=== PATIENT | female | born 1995 | race Caucasian/White ===

== ENCOUNTER 2020-01-22 11:31 | Outpatient (CLI) | payer BC ==
[2020-01-22 12:44] VITALS: BP 106/67; PULSE 86; RESP 18; TEMP 99
--- NOTE | 2020-01-22 18:48 | P.MSEPDOC ---
Presenting Problems - Arrival Data Date of Arrival on Unit: 01/22/20 Time of Arrival on Unit: 11:35 Mode of Transport: Ambulatory - Complaint OB-Reason for Admission/Chief Complaint: Other Comment: ruq pain. onset 3 days ago as pressure then stopped and then started yesterday again. without pain with palpation or percussion at this time. pain score of 0. Medical History - Information : 4 Para: 0 Term: 0 : 0 Abortions: Spontaneous or Elective: 3 Number of Living Children: 0 - Gestational Age Gestational Age by ZULEMA (wks/days): 25 Weeks and 3 Days - History Comment: partial previa per dr daniels. Review of Systems - Review of Systems Constitutional: No problems Breast: No problems ENT: No problems Cardiovascular: No problems Respiratory: No problems Gastrointestinal: No problems Genitourinary: No problems Musculoskeletal: No problems Neurological: No problems Skin: No problems Vital Signs - Temperature Temperature: 99.0 F Temperature Source: Oral - Pulse Right Brachial Pulse Rate: 86 Pulse Assessment Method: Automatic Cuff - Respirations Respiratory Rate: 18 Oxygen Delivery Method: Room Air O2 Sat by Pulse Oximetry: 100 - Blood Pressure Right Arm Blood Pressure: 106/67 Blood Pressure Mean: 80 Blood Pressure Source: Automatic Cuff Medical Screen Scoring (Pre) - Cervical Exam Dilation: Exam Deferred - Uterine Contractions Frequency: N/A Duration: N/A Intensity: N/A - Maternal Vital Signs Maternal Temperature: N/A Maternal Blood Pressure: N/A Signs of Preeclampsia: N/A Maternal Respirations: N/A - Maternal Trauma Maternal Trauma: N/A - Assessment - Baby A Baseline FHR: 135 Heart Rate - NICHD Category: Category I (Normal) = 0 NST: Reactive Position: N/A Station: N/A - Total Score - Baby A Total Score - Baby A: 0 - Total Score - Baby B Total Score - Baby B: 0 - Total Score - Baby C Total Score - Baby C: 0 - Level of Risk - Baby A Level of Risk - Baby A: Low (0-5) - Level of Risk - Baby B Level of Risk - Baby B: Low (0-5) - Level of Risk - Baby C Level of Risk - Baby C: Low (0-5) Physician Notification (Pre) - Physician Notified Physician Notified Date: 01/22/20 Physician Notified Time: 11:58 New Order Received: Yes - Notification Comment Comment: discharge home. to keep next sched appt with dr mclain and katrin chavezq pain with her. Disposition - Disposition OB Disposition: Discharge to home Discharge Date: 01/22/20 Discharge Time: 12:10 I agree with the RN Medical Screening Exam: Yes Risk & Benefit of care provided described in d/c instruction: Yes Diagnosis: PAIN, UNSPECIFIED
== END 2020-01-22 12:10 | disposition home or self-care (01) ==
LOC: FBPOP 11:31
PROVIDERS: ATTEND Obstetrics & Gynecology
DX: O99.891 Other specified diseases and conditions complicating pregnancy (principal); R52 Pain, unspecified; Z3A.25 25 weeks gestation of pregnancy
CPT/HCPCS: 99213

== ENCOUNTER 2020-03-09 14:23 | Outpatient (CLI) | payer BC ==
[2020-03-09 15:38] VITALS: BP 113/62; PULSE 90; RESP 18; TEMP 98.2
--- NOTE | 2020-03-09 16:23 | US ---
EXAMINATION TYPE: US OB BPP wo non-stress DATE OF EXAM: 03/09/2020 COMPARISON: NONE CLINICAL HISTORY: Bleeding. Known third trimester gestation. EXAM PERFORMED: Transabdominal (TA) BPP PARAMETERS: PRESENTATION: Vertex HEART RATE: 133 bpm RHYTHM: Normal SELMA: 11.8 DIAPHRAGM IMAGED: BPP SCORIN. Breathin (1 episode of breathing of 30 second duration in 30 minutes of scanning time) 2. Movement: 2 (at least 3 discrete body movements in 30 minutes) 3. Tone: 2 (1 episode of active flexion/extension of limb) 4. SELMA: 2 (SELMA index > 5cm) TOTAL SCORE: 8 / 8 Single live intrauterine gestation. Normal cephalad presentation. No placenta previa. Ultrasound biop hysical profile scored normal range during real-time scanning.
--- NOTE | 2020-03-09 16:25 | US ---
EXAMINATION TYPE: US OB limited DATE OF EXAM: 03/09/2020 COMPARISON: NONE CLINICAL HISTORY: BLEEDING. Known third trimester gestation. EXAM PERFORMED: GESTATIONAL AGE / DATING Physician Established: (32 weeks/1 days) EDC: 05/03/20 No growth performed on today?s study per ordering physician SURVEY PLACENTA: Posterior/fundal PREVIA: difficult to assess where cervix ends due to shadowing of bone Ultrasound evidence of abruption? No PRESENTATION: Vertex HEART RATE: 133 bpm RHYTHM: Arrhythmia Pictures on Biophysical profile. Single live intrauterine gestation. Normal cephalad presentation. No placenta previa. Calculated amni otic fluid index within normal limits. heart tones lower limits of normal. The technologist nasrin castillo arrhythmia during real-time scanning? IMPRESSION: As above.
--- NOTE | 2020-03-21 20:14 | P.MSEPDOC ---
Presenting Problems - Arrival Data Date of Arrival on Unit: 03/09/20 Time of Arrival on Unit: 14:23 Mode of Transport: Portable - Complaint OB-Reason for Admission/Chief Complaint: Vaginal Bleeding Medical History - Information : 4 Para: 0 Term: 0 : 0 Abortions: Spontaneous or Elective: 3 Number of Living Children: 0 - Gestational Age Gestational Age by ZULEMA (wks/days): 32 Weeks and 1 Days - History Complications: Placenta Previa Review of Systems - Review of Systems Constitutional: No problems Breast: No problems ENT: No problems Cardiovascular: No problems Respiratory: No problems Gastrointestinal: No problems Genitourinary: No problems Musculoskeletal: No problems Neurological: No problems Skin: No problems Vital Signs - Temperature Temperature: 98.2 F Temperature Source: Temporal Artery Scan - Pulse Right Pulse Rate: 90 Pulse Assessment Method: Automatic Cuff - Respirations Respiratory Rate: 18 Oxygen Delivery Method: Room Air O2 Sat by Pulse Oximetry: 98 - Blood Pressure Right Arm Blood Pressure: 113/62 Blood Pressure Mean: 79 Blood Pressure Source: Automatic Cuff Medical Screen Scoring (Pre) - Cervical Exam Dilation: Exam Deferred Effacement: Exam Deferred Membranes: Intact - Uterine Contractions Frequency: N/A Duration: N/A Intensity: N/A - Maternal Vital Signs Maternal Temperature: N/A Maternal Blood Pressure: N/A Signs of Preeclampsia: N/A Maternal Respirations: N/A - Maternal Trauma Maternal Trauma: N/A - Assessment - Baby A Baseline FHR: 125 Heart Rate - NICHD Category: Category I (Normal) = 0 NST: Reactive Position: N/A Station: N/A - Total Score - Baby A Total Score - Baby A: 0 - Total Score - Baby B Total Score - Baby B: 0 - Total Score - Baby C Total Score - Baby C: 0 - Level of Risk - Baby A Level of Risk - Baby A: Low (0-5) - Level of Risk - Baby B Level of Risk - Baby B: Low (0-5) - Level of Risk - Baby C Level of Risk - Baby C: Low (0-5) Physician Notification (Pre) - Physician Notified Physician Notified Date: 03/09/20 Physician Notified Time: 15:00 New Order Received: Yes - Notification Comment Comment: Order US for BPP and assessment of placenta for signs of hemorrhage. Medical Screen Scoring (Post) - Uterine Contractions Frequency: N/A Duration: N/A Intensity: N/A - Maternal Vital Signs Maternal Temperature: N/A Maternal Blood Pressure: N/A Signs of Preeclampsia: N/A Maternal Respirations: N/A - Maternal Trauma Maternal Trauma: N/A - Assessment - Baby A Heart Rate: 135 Heart Rate - NICHD Category: Category I (Normal) = 0 NST: Reactive Position: N/A Station: N/A - Total Score Total Score - Baby A: 0 Total Score - Baby B: 0 Total Score - Baby C: 0 - Post Treatment Level of Risk Post Treatment Level of Risk - Baby A: Low (0-5) Post Treatment Level of Risk - Baby B: Low (0-5) Post Treatment Level of Risk - Baby C: Low (0-5) Physician Notification (Post) - Physician Notified Physician Notified Date: 03/09/20 Physician Notified Time: 16:39 Physician/Practitioner Notified:: Maxwell Spoke With: Vidhi New Order Received: Yes - Notification Comment Comment: RN and Dr. Arreola reviewed US results with. pt. Per the US, the placenta has migrated to. posterior fundal, and no signs of hemorrhage noted. Pt may DC home and follow up with Dr. Arreola in 2. days at her scheduled apt. US to be repeated at that. time in the office to assess further. Disposition - Disposition OB Disposition: Discharge to home Discharge Date: 03/09/20 Discharge Time: 16:47 I agree with the RN Medical Screening Exam: Yes Physician's MSE Comment: I did see this patient in triage. She had some vaginal bleeding that seemed to stop in triage. US was normal and she has a repeat US in a few days. Precautions of when to return were reviewed. Case reviewed; plan agreed upon as documented in EMR&OBIX.: Yes Diagnosis: COMPLETE PLACENTA PREVIA WITH HEMORRHAGE, THIRD TRIMESTER
== END 2020-03-09 16:47 | disposition home or self-care (01) ==
LOC: FBPOP 14:23
PROVIDERS: ATTEND Obstetrics & Gynecology
DX: O44.13 Complete placenta previa with hemorrhage, third trimester (principal); Z3A.32 32 weeks gestation of pregnancy
CPT/HCPCS: 76815; 76819; 99213

== ENCOUNTER 2020-03-25 10:05 | Outpatient (CLI) | payer BC ==
[2020-03-25] MEDS ORDERED: BETAMET ACET-BETAMETH SOD PHOS 6 MG/ML MDV IM SCH (12:45)
[2020-03-25 12:57] VITALS: BP 98/53; PULSE 93; RESP 16; TEMP 98.3
--- NOTE | 2020-03-25 18:06 | P.MSEPDOC ---
Presenting Problems - Arrival Data Date of Arrival on Unit: 03/25/20 Time of Arrival on Unit: 10:03 Mode of Transport: Ambulatory - Complaint OB-Reason for Admission/Chief Complaint: Vaginal Bleeding Medical History - Information : 4 Para: 0 Number of Living Children: 0 - Gestational Age Gestational Age by ZULEMA (wks/days): 34 Weeks and 3 Days Review of Systems - Review of Systems Constitutional: No problems Breast: No problems ENT: No problems Cardiovascular: No problems Respiratory: No problems Gastrointestinal: No problems Genitourinary: No problems Musculoskeletal: No problems Neurological: No problems Skin: No problems Vital Signs - Temperature Temperature: 98.3 F Temperature Source: Temporal Artery Scan - Pulse Right Sitting Brachial Pulse Rate: 93 Pulse Assessment Method: Automatic Cuff - Respirations Respiratory Rate: 16 Oxygen Delivery Method: Room Air O2 Sat by Pulse Oximetry: 97 - Blood Pressure Right Arm Supine Blood Pressure: 98/53 Blood Pressure Mean: 68 Blood Pressure Source: Automatic Cuff Medical Screen Scoring (Pre) - Cervical Exam Dilation: 0 cm = 0 - Uterine Contractions Frequency: N/A Duration: N/A Intensity: N/A - Maternal Vital Signs Maternal Temperature: N/A Maternal Blood Pressure: N/A Signs of Preeclampsia: N/A Maternal Respirations: N/A - Maternal Trauma Maternal Trauma: N/A - Assessment - Baby A Baseline FHR: 135 Heart Rate - NICHD Category: Category I (Normal) = 0 Position: N/A Station: N/A - Total Score - Baby A Total Score - Baby A: 0 - Total Score - Baby B Total Score - Baby B: 0 - Total Score - Baby C Total Score - Baby C: 0 - Level of Risk - Baby A Level of Risk - Baby A: Low (0-5) - Level of Risk - Baby B Level of Risk - Baby B: Low (0-5) - Level of Risk - Baby C Level of Risk - Baby C: Low (0-5) Physician Notification (Pre) - Physician Notified Physician Notified Date: 03/25/20 Physician Notified Time: 11:09 New Order Received: Yes - Notification Comment Comment: monitor, will come see pt Disposition - Disposition OB Disposition: Discharge to home Discharge Date: 03/25/20 Discharge Time: 12:45 I agree with the RN Medical Screening Exam: Yes Case reviewed; plan agreed upon as documented in EMR&OBIX.: Yes Comments: I spoke with the patient and her in triage. There was one small clot and a small amount of spotting-both brown old blood. Discussed risks of hemorrrhage with the low lying placenta. Pt to return if bleeding starts to hot die picker or any decrease in movement. FHT are currently category1 and have been that way for a few hours. 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 Diagnosis: LOW LYING PLACENTA WITH HEMORRHAGE, THIRD TRIMESTER
== END 2020-03-25 12:45 | disposition home or self-care (01) ==
LOC: FBPOP 10:05
PROVIDERS: ATTEND Obstetrics & Gynecology
DX: O44.53 Low lying placenta with hemorrhage, third trimester (principal); Z3A.34 34 weeks gestation of pregnancy
CPT/HCPCS: 59025; 99214; 96372; J0702

== ENCOUNTER 2020-03-26 13:10 | Outpatient (CLI) | payer BC ==
[2020-03-26] MEDS ORDERED: BETAMET ACET-BETAMETH SOD PHOS 6 MG/ML MDV IM SCH (13:45)
--- NOTE | 2020-04-02 09:43 | P.MSEPDOC ---
Presenting Problems - Arrival Data Date of Arrival on Unit: 03/26/20 Time of Arrival on Unit: 13:15 Mode of Transport: Ambulatory Disposition - Disposition Discharge Date: 03/26/20 Discharge Time: 14:00 I agree with the RN Medical Screening Exam: Yes Physician's MSE Comment: Pt is 34 weeks with a low lying placenta. She has had light bleeding a couple of times. She is getting celestone injections in case she needs to be delivered early. Case reviewed; plan agreed upon as documented in EMR&OBIX.: Yes Diagnosis: LOW LYING PLACENTA WITH HEMORRHAGE, THIRD TRIMESTER
== END 2020-03-26 14:05 | disposition home or self-care (01) ==
LOC: FBPOP 13:10
PROVIDERS: ATTEND Obstetrics & Gynecology
DX: O44.53 Low lying placenta with hemorrhage, third trimester (principal); Z3A.34 34 weeks gestation of pregnancy
CPT/HCPCS: 59025; 99214; 96372; J0702

== ENCOUNTER 2020-04-14 11:05 | Outpatient (CLI) | payer BC ==
[2020-04-14 12:54] VITALS: BP 98/65; PULSE 90; RESP 16; TEMP 98.4
--- NOTE | 2020-04-27 06:45 | P.MSEPDOC ---
Presenting Problems - Arrival Data Date of Arrival on Unit: 04/14/20 Time of Arrival on Unit: 11:05 Mode of Transport: Ambulatory - Complaint OB-Reason for Admission/Chief Complaint: Vaginal Bleeding Medical History - Information : 4 Para: 0 Term: 0 : 0 Abortions: Spontaneous or Elective: 0 Number of Living Children: 0 - Gestational Age Gestational Age by ZULEMA (wks/days): 37 Weeks and 2 Days - History Complications: Placenta Previa Review of Systems - Review of Systems Constitutional: No problems Breast: No problems ENT: No problems Cardiovascular: No problems Respiratory: No problems Gastrointestinal: No problems Genitourinary: No problems Musculoskeletal: No problems Neurological: No problems Skin: No problems Vital Signs - Temperature Temperature: 98.4 F Temperature Source: Temporal Artery Scan - Pulse Brachial Pulse Rate: 90 Pulse Assessment Method: Automatic Cuff - Respirations Respiratory Rate: 16 Oxygen Delivery Method: Room Air O2 Sat by Pulse Oximetry: 98 - Blood Pressure Sitting Blood Pressure: 98/65 Blood Pressure Mean: 76 Blood Pressure Source: Automatic Cuff Medical Screen Scoring (Pre) - Cervical Exam Dilation: Exam Deferred Effacement: Exam Deferred Membranes: Intact - Uterine Contractions Frequency: N/A Duration: N/A Intensity: N/A - Maternal Vital Signs Maternal Temperature: N/A Maternal Blood Pressure: N/A Signs of Preeclampsia: N/A Maternal Respirations: N/A - Maternal Trauma Maternal Trauma: N/A - Assessment - Baby A Baseline FHR: 135 Heart Rate - NICHD Category: Category I (Normal) = 0 NST: Reactive Position: N/A Station: N/A - Total Score - Baby A Total Score - Baby A: 0 - Total Score - Baby B Total Score - Baby B: 0 - Total Score - Baby C Total Score - Baby C: 0 - Level of Risk - Baby A Level of Risk - Baby A: Low (0-5) - Level of Risk - Baby B Level of Risk - Baby B: Low (0-5) - Level of Risk - Baby C Level of Risk - Baby C: Low (0-5) Physician Notification (Pre) - Physician Notified Physician Notified Date: 04/14/20 Physician Notified Time: 11:32 New Order Received: Yes - Notification Comment Comment: reported pt here for bleeding after intercourse. pt has a previa. reactive nst, bleeding slowed. pt sent home after monitored for a full hour. Disposition - Disposition OB Disposition: Triage, Discharge to home, Written follow up instructions reviewed Discharge Date: 04/14/20 Discharge Time: 12:35 I agree with the RN Medical Screening Exam: Yes Case reviewed; plan agreed upon as documented in EMR&OBIX.: Yes Diagnosis: LOW LYING PLACENTA WITH HEMORRHAGE, THIRD TRIMESTER
== END 2020-04-14 12:35 | disposition home or self-care (01) ==
LOC: FBPOP 11:05
PROVIDERS: ATTEND Obstetrics & Gynecology
DX: O44.53 Low lying placenta with hemorrhage, third trimester (principal); Z3A.37 37 weeks gestation of pregnancy
CPT/HCPCS: 59025; 99213

== ENCOUNTER 2020-04-20 10:01 | Outpatient (CLI) | payer BC ==
[2020-04-20 12:47] VITALS: BP 106/56; PULSE 85; RESP 16; TEMP 97.4
--- NOTE | 2020-04-27 06:44 | P.MSEPDOC ---
Presenting Problems - Arrival Data Date of Arrival on Unit: 04/20/20 Time of Arrival on Unit: 10:30 Mode of Transport: Ambulatory - Complaint OB-Reason for Admission/Chief Complaint: Vaginal Bleeding, Other Comment: maginal previa. came in bleeding and passed clot in night. no active bleeding now. no contx and no abd tenderness/or pain Medical History - Information : 4 Para: 0 Term: 0 : 0 Abortions: Spontaneous or Elective: 3 Number of Living Children: 0 - Gestational Age Gestational Age by ZULEMA (wks/days): 38 Weeks and 0 Days Review of Systems - Review of Systems Constitutional: No problems Breast: No problems ENT: No problems Cardiovascular: No problems Respiratory: No problems Gastrointestinal: No problems Genitourinary: No problems Musculoskeletal: No problems Neurological: No problems Skin: No problems Vital Signs - Temperature Temperature: 97.4 F Temperature Source: Temporal Artery Scan - Pulse Right Apical Pulse Rate: 85 Pulse Assessment Method: Automatic Cuff - Respirations Respiratory Rate: 16 Oxygen Delivery Method: Room Air O2 Sat by Pulse Oximetry: 99 - Blood Pressure Right Arm Blood Pressure: 106/56 Blood Pressure Mean: 72 Blood Pressure Source: Automatic Cuff Medical Screen Scoring (Pre) - Cervical Exam Dilation: Exam Deferred Effacement: Exam Deferred Membranes: Intact - Uterine Contractions Frequency: N/A Duration: N/A Intensity: N/A - Maternal Vital Signs Maternal Temperature: N/A Signs of Preeclampsia: N/A Maternal Respirations: N/A - Maternal Trauma Maternal Trauma: N/A - Assessment - Baby A Baseline FHR: 130 Heart Rate - NICHD Category: Category I (Normal) = 0 NST: Reactive Position: N/A Station: N/A - Total Score - Baby A Total Score - Baby A: 0 - Total Score - Baby B Total Score - Baby B: 0 - Total Score - Baby C Total Score - Baby C: 0 - Level of Risk - Baby A Level of Risk - Baby A: Low (0-5) - Level of Risk - Baby B Level of Risk - Baby B: Low (0-5) - Level of Risk - Baby C Level of Risk - Baby C: Low (0-5) Physician Notification (Pre) - Physician Notified Physician Notified Date: 04/20/20 Physician Notified Time: 11:00 New Order Received: Yes (home with instructions) Disposition - Disposition OB Disposition: Discharge to home Discharge Date: 04/20/20 Discharge Time: 12:30 I agree with the RN Medical Screening Exam: Yes Case reviewed; plan agreed upon as documented in EMR&OBIX.: Yes Diagnosis: LOW LYING PLACENTA WITH HEMORRHAGE, THIRD TRIMESTER
== END 2020-04-20 12:30 | disposition home or self-care (01) ==
LOC: FBPOP 10:01
PROVIDERS: ATTEND Obstetrics & Gynecology
DX: O44.53 Low lying placenta with hemorrhage, third trimester (principal); Z3A.38 38 weeks gestation of pregnancy
CPT/HCPCS: 59025; 99213

== ENCOUNTER 2020-04-24 03:50 | Inpatient (IN) | payer BC ==
[2020-04-24] MEDS ORDERED: CITRIC ACID-SODIUM CITRATE 15 ML CUP PO ONE (04:42)
[2020-04-24] MEDS: LACTATED RINGERS 1,000 ML IV SCH ×4 (04:50→22:19)
[2020-04-24 05:07] LABS: Basophils % (A) 0 %; Eosinophils % (A) 1 %; HCT 39.2 % (34.0-46.0); HGB 13.3 gm/dL (11.4-16.0); Lymphocytes # (A) 1.8 k/uL (1.0-4.8); Lymphocytes % (A) 21 %; MCH 32.7 pg (25.0-35.0); MCHC 33.9 g/dL (31.0-37.0); MCV 96.4 fL (80.0-100.0); Mean Platelet Volume 7.3; Monocytes # (A) 0.4 k/uL (0-1.0); Monocytes % (A) 5 %; Neutrophils # (A) 6.4 k/uL (1.3-7.7); Neutrophils % (A) 73 %; Platelet Count 146 k/uL (150-450); RBC 4.07 m/uL (3.80-5.40); RDW 13.5 % (11.5-15.5); WBC 8.8 k/uL (3.8-10.6)
[2020-04-24 05:36] LABS: D-Dimer 3.38 mg/L FEU (<0.60); INR 0.8 (<1.2); Partial Thromboplastin Time 22.3 sec (22.0-30.0); Prothrombin Time 9.3 sec (9.0-12.0)
[2020-04-24] MEDS ORDERED: PHENYLEPHRINE-0.9% NACL SYG 1,000 MCG/10 ML SYRINGE ONE (08:01)
[2020-04-24] MEDS ORDERED: NALBUPHINE 10 MG/ML (1 ML AMP) ONE (08:01)
[2020-04-24] MEDS ORDERED: MORPHINE SULFATE (PF) 0.3 MG/0.3 ML SYR ONE (08:01)
[2020-04-24] MEDS ORDERED: OXYTOCIN 10 UNIT/ML 1 ML VIAL ONE (08:01)
[2020-04-24] MEDS ORDERED: ACETAMINOPHEN TAB 325 MG TAB PO PRN (08:43)
[2020-04-24] MEDS ORDERED: LANOLIN CREAM 5 GM TUBE TOPICAL PRN (08:43)
[2020-04-24] MEDS ORDERED: Rhogam IMMUNE GLOBULIN 1,500 UNIT/1 ML IM ONE (08:43)
[2020-04-24] MEDS ORDERED: NALOXONE 0.4 MG/ML 1 ML VIAL IV PRN (08:43)
[2020-04-24] MEDS ORDERED: diphenhydrAMINE 25 MG CAP PO PRN (08:43)
[2020-04-24] MEDS ORDERED: ZOLPIDEM 5 MG TAB PO PRN (08:43)
[2020-04-24] MEDS ORDERED: diphenhydrAMINE 50 MG/ML 1 ML VIAL IVP PRN (08:43)
[2020-04-24] MEDS ORDERED: SIMETHICONE 80 MG CHEWABLE PO PRN (08:43)
[2020-04-24] MEDS ORDERED: HYDROcodone/APAP 7.5-325MG 1 EACH TAB PO PRN (08:43)
[2020-04-24] MEDS ORDERED: METOCLOPRAMIDE 5 MG/ML 2 ML VIAL IVP PRN (08:43)
[2020-04-24] MEDS ORDERED: diphenhydrAMINE 50 MG CAP PO PRN (08:43)
[2020-04-24] MEDS ORDERED: ONDANSETRON 4 MG/2 ML VIAL IVP PRN (08:43)
[2020-04-24] MEDS ORDERED: OXYTOCIN 30 UNITS/500 ML NS 30 UNIT in SALINE 1 500ML.BAG IV SCH (08:45)
[2020-04-24] MEDS ORDERED: MORPHINE SULFATE 2 MG/ML SYRINGE IVP PRN (09:17)
[2020-04-24] MEDS: diphenhydrAMINE 50 MG/ML 1 ML VIAL IVP PRN ×2 (10:54→20:08)
[2020-04-24] MEDS: KETOROLAC 15 MG/ML 1 ML VIAL IVP PRN ×2 (11:00→20:07)
--- NOTE | 2020-04-24 12:43 | P.HPOB ---
History of Present Illness H&P Date: 04/24/20 Chief Complaint: bleeding, low lying placenta 25-year-old presents at 38 weeks and 4 days with some bleeding. She had 3 blood clots passed early this morning. She does have a low-lying placenta is scheduled for section. heart tones are category 1 but since this is not her first bleed and she is term and we will proceed with section today. Review of Systems All systems: negative Constitutional: Denies chills, Denies fever Eyes: denies blurred vision, denies pain Ears, nose, mouth and throat: Denies headache, Denies sore throat Cardiovascular: Denies chest pain, Denies shortness of breath Respiratory: Denies cough Gastrointestinal: Denies abdominal pain, Denies diarrhea, Denies nausea, Denies vomiting Genitourinary: Denies dysuria, Denies hematuria Musculoskeletal: Denies myalgias Integumentary: Denies pruritus, Denies rash Neurological: Denies numbness, Denies weakness Psychiatric: Denies anxiety, Denies depression Endocrine: Denies fatigue, Denies weight change Past Medical History Past Medical History: No Reported History History of Any Multi-Drug Resistant Organisms: None Reported Past Surgical History: Ear Surgery, Tonsillectomy Additional Past Surgical History / Comment(s): colonoscopy Past Anesthesia/Blood Transfusion Reactions: No Reported Reaction Past Psychological History: ADD/ADHD, Anxiety, Depression Smoking Status: Former smoker Past Alcohol Use History: Occasional Past Drug Use History: None Reported - Past Family History Brother(s) Additional Family Medical History / Comment(s): GPA autoimmune disorder ([place]) Medications and Allergies Home Medications Medication Instructions Recorded Confirmed Type PARoxetine HCL [Paxil] 20 mg PO DAILY 01/22/20 04/24/20 History Pnv,Calcium 72/Iron/Folic Acid 1 each PO DAILY 01/22/20 04/24/20 History [ Plus Tablet] lamoTRIgine [LaMICtal] 50 mg PO DAILY 01/22/20 04/24/20 History Allergies Allergy/AdvReac Type Severity Reaction Status Date / Time No Known Allergies Allergy Verified 04/20/20 10:49 Exam Osteopathic Statement: *. No significant issues noted on an osteopathic stru ctural exam other than those noted in the History and Physical/Consult. Vital Signs Temp Pulse Resp BP Pulse Ox 04/24/20 12:00 97.3 F L 65 18 111/70 98 04/24/20 10:17 50 L 16 99/64 99 04/24/20 09:47 65 16 88/53 98 04/24/20 09:32 65 16 87/49 99 04/24/20 09:17 65 16 96/59 98 04/24/20 09:02 67 16 92/54 100 04/24/20 08:40 97.6 F 77 16 93/52 99 04/24/20 04:45 97.8 F 82 16 109/64 98 04/24/20 04:02 97.8 F 82 16 109/64 98 Intake and Output 04/23/20 04/24/20 04/24/20 22:59 06:59 14:59 Other: # Voids 1 Weight 59.874 kg Heart: Regular rate and rhythm Lungs: Clear to auscultation bilaterally Abdomen: Soft, nontender Extremities: Negative Homans sign Results Result Diagrams: 04/24/20 04:56 Abnormal Lab Results - Last 24 Hours (Table) 04/24/20 04/24/20 Range/Units 04:56 04:56 Plt Count 146 L (150-450) k/uL Fibrinogen 546 H (200-500) mg/dL D-Dimer 3.38 H (<0.60) mg/L FEU Assessment and Plan (1) Low lying placenta with hemorrhage in third trimester, antepartum Current Visit: Yes Status: Acute Code(s): O44.53 - LOW LYING PLACENTA WITH HEMORRHAGE, THIRD TRIMESTER SNOMED Code(s): 625215237 Plan: 1. Admit to family place 2. Primary low transverse
--- NOTE | 2020-04-24 12:45 | P.OP ---
Date of Procedure: 04/24/20 Preoperative Diagnosis: 1. at 38 weeks and 4 days 2. Low-lying placenta with hemorrhage Postoperative Diagnosis: 1. at 38 weeks and 4 days 2. Low-lying placenta with hemorrhage Procedure(s) Performed: Primary low transverse Anesthesia: spinal Surgeon: Ana Arreola Geotechnical Field Technician #1: Ermelinda Salgado Estimated Blood Loss (ml): 500 IV fluids (ml): 600 Urine output (ml): 100 Pathology: other (Placenta) Condition: stable Disposition: floor Operative Findings: Viable Apgars 8, 9, weight 7 lbs. 2 oz. normal uterus, tubes, ovaries. Description of Procedure: Patient was taken to the operating room where spinal anesthesia was found be adequate. She was prepped and draped in normal sterile fashion in dorsal supine position with a leftward tilt. Pfannenstiel skin incision was made the scalpel and carried through to the underlying layer of fascia with the scalpel. Fascia was incised in midline and carried bilaterally with the Locke scissors. The s uperior aspect of the fascial incision was grasped with Beaumont clamps elevated and the underlying rectus muscles dissected off with the Locke's. Attention was then turned to inferior aspect of same incision which in a similar fashion was grasped tented up and the underlying rectus muscles dissected off with the Locke's. The rectus muscles were the midline and the peritoneum was identified tented up and entered sharply with the scalpel. The incision was extended superiorly and inferiorly with good visualization of the bladder. The bladder blade was inserted and the vesicouterine peritoneum was incised the Metzenbaums then carried bilaterally and bladder flap created digitally. A low transverse incision was then made on the uterus with the scalpel. This was carried bilaterally and digital manner. 's head delivered atraumatically, nose and mouth bulb suctioned, cord clamped and cut, handed off to waiting nurses. Apgars 8,9, weight 7 lbs. 2 oz. Placenta delivered manually, intact with three-vessel cord. The uterus is exteriorized and cleared of all clots and debris. The uterine incision was closed with 0 Vicryl in a running locked fashion. Second layer of the same sutures used in imbricating fashion to obtain excellent hemostasis. Bladder flap was then reapproximated using 2-0 Vicryl in a running fashion. Both ovaries and tubes appeared normal. The uterus was placed back into the abdomen. The peritoneum was reapproximated using 2-0 Vicryl in a running fashion. The muscles were reapproximated using 2- 0 Vicryl in interrupted fashion. The fascia was reapproximated using 0 Vicryl in a running fashion. The subcutaneous tissues closed with 3-0 Vicryl running fashion. The skin was closed beatrice. Patient tolerated the procedure well, sponge and instrument counts were correct times 2 and she was taken to the recovery room in stable condition.
[2020-04-24] MEDS: SENNOSIDES-DOCUSATE SODIUM 1 EACH TAB PO SCH (20:06)
[2020-04-25 07:45] LABS: Basophils % (A) 0 %; Eosinophils % (A) 0 %; HCT 29.6 % (34.0-46.0); Lymphocytes # (A) 1.3 k/uL (1.0-4.8); Lymphocytes % (A) 17 %; MCH 32.6 pg (25.0-35.0); MCHC 34.1 g/dL (31.0-37.0); MCV 95.5 fL (80.0-100.0); Monocytes # (A) 0.4 k/uL (0-1.0); Monocytes % (A) 5 %; Neutrophils % (A) 77 %; Platelet Count 133 k/uL (150-450); RDW 13.9 % (11.5-15.5); WBC 7.9 k/uL (3.8-10.6)
[2020-04-25 07:51] LABS: HGB 10.1 gm/dL (11.4-16.0)
[2020-04-25] MEDS: IBUPROFEN 600 MG TAB PO PRN ×3 (08:20→19:21)
[2020-04-25] MEDS: SENNOSIDES-DOCUSATE SODIUM 1 EACH TAB PO SCH ×2 (08:20→21:53)
--- NOTE | 2020-04-25 09:36 | P.PNOBGPC ---
Subjective - Subjective Principal diagnosis: Status post primary low transverse postop day #1 Interval history: Patient had some severe itching from the Duramorph spinal. She is feeling much better now. Denies nausea, vomiting, chest pain, shortness of breath or calf pain. Patient reports: Reports appetite normal, Reports voiding normally, Reports pain well controlled, Reports ambulating normally : doing well Objective - Vital Signs Latest vital signs: Vital Signs Temp Pulse Resp BP Pulse Ox 04/25/20 08:00 98.5 F 85 15 96/65 97 04/25/20 06:00 14 04/25/20 04:00 98.4 F 70 14 99/58 99 04/25/20 02:00 14 04/25/20 00:00 98.6 F 77 16 97/65 98 04/24/20 22:00 15 100 04/24/20 20:00 98.1 F 69 16 99/62 100 04/24/20 16:00 98.3 F 65 16 105/62 99 04/24/20 14:17 98 04/24/20 14:00 16 04/24/20 12:17 16 04/24/20 12:00 97.3 F L 65 18 111/70 98 04/24/20 10:17 50 L 16 99/64 99 04/24/20 09:47 65 16 88/53 98 Intake and Output 04/24/20 04/25/20 04/25/20 22:59 06:59 14:59 Output Total 1000 100 Balance -1000 -100 Output: Urine 1000 100 Uretheral (Thompson) 400 - Exam Lungs: bilateral: normal Chest: Normal S1, Normal S2 Extremities: Present: normal Abdomen: Present: normal appearance, soft. Absent: distention, tenderness Incision: Present: normal, dry, intact Uterus: Present: normal, firm - Labs Labs: Abnormal Lab Results - Last 24 Hours (Table) 04/25/20 Range/Units 07:12 RBC 3.10 L (3.80-5.40) m/uL Hgb 10.1 L D (11.4-16.0) gm/dL Hct 29.6 L (34.0-46.0) % Plt Count 133 L (150-450) k/uL Assessment and Plan (1) Low lying placenta with hemorrhage in third trimester, antepartum Current Visit: Yes Status: Resolved Code(s): O44.53 - LOW LYING PLACENTA WITH HEMORRHAGE, THIRD TRIMESTER SNOMED Code(s): 643023620 (2) Status post primary low transverse section Current Visit: Yes Status: Acute Code(s): Z98.891 - HISTORY OF UTERINE SCAR FROM PREVIOUS SURGERY SNOMED Code(s): 086428642 Plan: 1. Increase ambulation 2. By mouth pain medication
--- NOTE | 2020-04-25 10:35 | P.PN ---
Progress Note - Text Progress Note Date: 04/25/20 (1016) Anesthesia Postop day 1 Subjective: Status Post section with Duramorph. Patient seen and examined. Doing well without current complaints. Positive pruritus yesterday now resolved. VAS 0. No nausea or vomiting complaints. Afebrile. Gross lower extremity strength intact. Positive ambulation. Without apparent anesthetic complications. Objective: Vital signs reviewed Heart: Regular Rate Lungs: Good chest excursion Abdomen: Appears nondistended Assessment: Status post with Duramorph postop day 1 Plan: Continue current care with your medical management.
[2020-04-25 23:50] VITALS: PULSE 71; RESP 16
[2020-04-26] MEDS: IBUPROFEN 600 MG TAB PO PRN ×2 (01:03→08:32)
[2020-04-26 09:23] VITALS: BP 100/65; TEMP 98.6
[2020-04-26] MEDS: SENNOSIDES-DOCUSATE SODIUM 1 EACH TAB PO SCH (09:23)
--- NOTE | 2020-04-26 09:26 | P.DS ---
Providers Date of admission: 04/24/20 04:40 Expected date of discharge: 04/26/20 Attending physician: Ana Arreola Primary care physician: Stated None - Discharge Diagnosis(es) (1) Low lying placenta with hemorrhage in third trimester, antepartum Current Visit: Yes Status: Resolved (2) Status post primary low transverse section Current Visit: Yes Status: Acute Hospital Course: Patient presented for primary low transverse due to low-lying placenta. She underwent this procedure without crepitation. Postoperatively her course was uncomplicated. She is ambulating voiding without difficulty. Denies nausea, vomiting, chest pain, shortness of breath or any calf pain. Pain is well-controlled. Incision is clean, dry, intact. Patient will be discharged home day #2 in stable condition to follow-up with me in one week. Plan - Discharge Summary New Discharge Prescriptions: New Ibuprofen [Motrin] 600 mg PO Q6HR PRN #30 tab PRN Reason: Mild Pain Or Fever >= 100.5 HYDROcodone/APAP 7.5-325MG [[place] 7.5-325] 1 each PO Q6H PRN #12 tab PRN Reason: Severe Pain No Action lamoTRIgine [LaMICtal] 50 mg PO DAILY PARoxetine HCL [Paxil] 20 mg PO DAILY Pnv,Calcium 72/Iron/Folic Acid [ Plus Tablet] 1 each PO DAILY Discharge Medication List PARoxetine HCL [Paxil] 20 mg PO DAILY 01/22/20 [History] Pnv,Calcium 72/Iron/Folic Acid [ Plus Tablet] 1 each PO DAILY 01/22/20 [History] lamoTRIgine [LaMICtal] 50 mg PO DAILY 01/22/20 [History] HYDROcodone/APAP 7.5-325MG [[place] 7.5-325] 1 each PO Q6H PRN #12 tab 04/26/20 [Rx] Ibuprofen [Motrin] 600 mg PO Q6HR PRN #30 tab 04/26/20 [Rx] Follow up Appointment(s)/Referral(s): Ana Arreola DO [Doctor of Osteopathic Medicine] - 1 Week Discharge Disposition: HOME SELF-CARE
[2020-04-26] MEDS ORDERED: MEASLES-MUMPS-RUBELLA VACC/PF 12,500 UNIT/0.5 ML VIAL SQ ONE (09:47)
--- NOTE | 2020-04-27 06:48 | P.MSEPDOC ---
Presenting Problems - Arrival Data Date of Arrival on Unit: 04/24/20 Time of Arrival on Unit: 04:40 Mode of Transport: Wheelchair - Complaint OB-Reason for Admission/Chief Complaint: Vaginal Bleeding Comment: pt has marginal previa, passed 3 clots at 0300 Medical History - Information : 4 Para: 0 Term: 0 : 0 Abortions: Spontaneous or Elective: 0 Number of Living Children: 0 - Gestational Age Gestational Age by ZULEMA (wks/days): 38 Weeks and 4 Days - History Complications: Placenta Previa Review of Systems - Review of Systems Constitutional: No problems Breast: No problems ENT: No problems Cardiovascular: No problems Respiratory: No problems Gastrointestinal: No problems Genitourinary: No problems Musculoskeletal: No problems Neurological: No problems Skin: No problems Vital Signs - Temperature Temperature: 98.6 F Temperature Source: Oral - Pulse Right Sitting Pulse Rate: 71 Pulse Assessment Method: Automatic Cuff - Respirations Respiratory Rate: 16 Oxygen Delivery Method: Room Air O2 Sat by Pulse Oximetry: 99 - Blood Pressure Right Arm Sitting Blood Pressure: 100/65 Blood Pressure Mean: 76 Blood Pressure Source: Automatic Cuff Medical Screen Scoring (Pre) - Cervical Exam Dilation: Exam Deferred Effacement: Exam Deferred Membranes: Intact - Uterine Contractions Frequency: > 5 minutes apart = 1 Duration: > 40 seconds = 2 - Maternal Vital Signs Maternal Temperature: N/A Maternal Blood Pressure: N/A Signs of Preeclampsia: N/A Maternal Respirations: N/A - Maternal Trauma Maternal Trauma: N/A - Assessment - Baby A Baseline FHR: 120 Heart Rate - NICHD Category: Category I (Normal) = 0 NST: Reactive Position: N/A Station: N/A - Total Score - Baby A Total Score - Baby A: 3 - Total Score - Baby B Total Score - Baby B: 3 - Total Score - Baby C Total Score - Baby C: 3 - Level of Risk - Baby A Level of Risk - Baby A: Low (0-5) - Level of Risk - Baby B Level of Risk - Baby B: Low (0-5) - Level of Risk - Baby C Level of Risk - Baby C: Low (0-5) Physician Notification (Pre) - Physician Notified Physician Notified Date: 04/24/20 Physician Notified Time: 04:32 New Order Received: Yes (admit for c section later this am) Disposition - Disposition OB Disposition: Admit, LDRP Suite Discharge Date: 04/26/20 Discharge Time: 14:16 I agree with the RN Medical Screening Exam: Yes Case reviewed; plan agreed upon as documented in EMR&OBIX.: Yes Diagnosis: LOW LYING PLACENTA WITH HEMORRHAGE, THIRD TRIMESTER
== END 2020-04-26 14:17 | disposition home or self-care (01) | DRG 788 ==
LOC: FBPOP 03:50 → 4FBP 04:40
PROVIDERS: ADMIT Obstetrics & Gynecology; ATTEND Obstetrics & Gynecology
PROC: 3E0234Z Introduction of Serum, Toxoid and Vaccine into Muscle, Percutaneous Approach (ICD-10-PCS; 2020-04-24)
PROC: 10D00Z1 Extraction of Products of Conception, Low, Open Approach (ICD-10-PCS; principal; 2020-04-24 08:00)
PROC: 3E0134Z Introduction of Serum, Toxoid and Vaccine into Subcutaneous Tissue, Percutaneous Approach (ICD-10-PCS; 2020-04-26)
DX: O44.53 Low lying placenta with hemorrhage, third trimester (principal); F32.9 Major depressive disorder, single episode, unspecified; O26.893 Other specified pregnancy related conditions, third trimester; O99.73 Diseases of the skin and subcutaneous tissue complicating the puerperium; O99.344 Other mental disorders complicating childbirth; F90.9 Attention-deficit hyperactivity disorder, unspecified type; L29.9 Pruritus, unspecified; Z37.0 Single live birth; Z3A.38 38 weeks gestation of pregnancy; Z23 Encounter for immunization; Z67.11 Type A blood, Rh negative; Z79.899 Other long term (current) drug therapy; Z90.89 Acquired absence of other organs; Z98.890 Other specified postprocedural states; Z87.891 Personal history of nicotine dependence
CPT/HCPCS: 59025; 85025; 85379; 85384; 85610; 85730; 86850; 86870; 86880; 86900; 86901; 88307; 90707; 99213